=== PATIENT | male | born 1980 | race Caucasian/White ===

== ENCOUNTER 2021-04-18 07:41 | Emergency (ER) | payer MEDICARE, MEDICAID ==
[~2021-04-18] VITALS: Ht 180.3 cm; Wt 75.3 kg
[2021-04-18 07:51] VITALS: BP 133/79
[2021-04-19] MEDS ORDERED: OLAN10TA3 PO (20:38)
[2021-04-19] MEDS ORDERED: HYDR28CR14 TOP (20:38)
[2021-04-19] MEDS ORDERED: OLAN20TA3 PO (20:38)
== END 2021-04-18 09:48 | disposition home or self-care (01) ==
LOC: ER 07:42
DX: M70.971 Unspecified soft tissue disorder related to use, overuse and pressure, right ankle and foot (principal); M70.972 Unspecified soft tissue disorder related to use, overuse and pressure, left ankle and foot; F12.90 Cannabis use, unspecified, uncomplicated; F31.9 Bipolar disorder, unspecified; Z59.0 Homelessness; Z98.890 Other specified postprocedural states; Z87.81 Personal history of (healed) traumatic fracture
CPT/HCPCS: 73600; 73620; 73630; 99283; 99284

== ENCOUNTER 2021-04-19 18:42 | Emergency (ER) | payer MEDICARE, MEDICAID ==
[~2021-04-19] VITALS: Ht 188 cm; Wt 73.6 kg
[2021-04-19 19:08] VITALS: BP 137/74
[2021-04-19] MEDS ORDERED: OLAN20TA3 PO (20:38)
[2021-04-19] MEDS ORDERED: OLAN10TA3 PO (20:38)
[2021-04-19] MEDS ORDERED: HYDR28CR14 TOP (20:38)
== END 2021-04-19 21:20 | disposition home or self-care (01) ==
LOC: ER 18:43
DX: S93.492A Sprain of other ligament of left ankle, initial encounter (principal); L40.9 Psoriasis, unspecified; F32.9 Major depressive disorder, single episode, unspecified; F17.200 Nicotine dependence, unspecified, uncomplicated; F12.90 Cannabis use, unspecified, uncomplicated; Z76.0 Encounter for issue of repeat prescription; Z59.0 Homelessness; Z98.890 Other specified postprocedural states; Z87.81 Personal history of (healed) traumatic fracture; W09.1XXA Fall from playground swing, initial encounter; Y93.89 Activity, other specified; Y92.89 Other specified places as the place of occurrence of the external cause; Y99.8 Other external cause status
CPT/HCPCS: 73610; 99283